=== PATIENT | male | born 1950 | race Caucasian/White ===

== ENCOUNTER 2024-12-17 10:52 | Observation (INO) | payer MEDICARE ==
[2024-12-12 11:16] VITALS: BP 129/70; PULSE 73; RESP 18; TEMP 97.7
[2024-12-12 12:10] LABS: BASOPHILS # (AUTO) 0.05 K/uL (0.00-0.20); BASOPHILS % (AUTO) 0.8 % (0.0-5.0); EOSINOPHILS # (AUTO) 0.22 K/uL (0.00-0.70); EOSINOPHILS % (AUTO) 3.7 % (0.0-8.0); HEMATOCRIT 47.4 % (42-54); IMMATURE GRANULOCYTE ABSOLUTE 0.02 K/uL (0-1); LYMPHOCYTES # (AUTO) 1.7 K/uL (1.0-4.8); LYMPHOCYTES % (AUTO) 28.6 % (21.0-51.0); MEAN CORPUSCULAR HEMOGLOBIN 30.8 pg (27.0-33.0); MEAN CORPUSCULAR HGB CONC 33.1 g/dL (32.0-36.0); MEAN CORPUSCULAR VOLUME 92.9 fL (79-99); MONOCYTES # (AUTO) 0.7 K/uL (0.1-1.0); MONOCYTES % (AUTO) 11.9 % (3.0-13.0); NEUTROPHILS # (AUTO) 3.2 K/uL (1.8-7.7); NEUTROPHILS % (AUTO) 54.7 % (40.0-77.0); PLATELET COUNT (AUTO) 195 K/uL (130-400); RED CELL DISTRIBUTION WIDTH 13.8 % (11.0-15.5); WHITE BLOOD COUNT (AUTO) 5.9 K/uL (4.8-10.8)
[2024-12-12 12:21] LABS: ALBUMIN 3.5 g/dL (3.5-5.0); CREATININE 1.1 mg/dL (0.5-1.3); INR 1.01 (0.85-1.15); POTASSIUM 5.4 mmol/L (3.5-5.1); PROTHROMBIN TIME 11.3 SEC (9.6-11.6)
[2024-12-12 12:22] LABS: PARTIAL THROMBOPLASTIN TIME 25.6 SEC (26.3-35.5)
--- NOTE | 2024-12-12 13:45 | EKG ---
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
--- NOTE | 2024-12-16 09:22 | NUR ---
RE: LABS REPORTED BMP RESULTS TO DR CHRISTY, NO NEW ORDERS RECEIVED.
[2024-12-17] VITALS (27 sets, daily range): BP systolic 103–152; BP diastolic 61–89; PULSE 62–119; RESP 13–19; TEMP 97.1–97.8; O2SAT 94
[~2024-12-17] VITALS: Ht 175.3 cm; Wt 89.8 kg
[~2024-12-17 10:52] MED LIST: ATOR40TA69 PO; INSU3INS3 SQ; METF-446 PO
[2024-12-17] MEDS: ceFAZolin SODIUM 2 GM VIAL ONE (11:40)
[2024-12-17] MEDS: 0.9%NACL 1000ML 1,000 ML IV ONE (11:40)
--- NOTE | 2024-12-17 11:50 | EKG ---
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
[2024-12-17] MEDS ORDERED: LIDOCAINE PF 100MG/5ML (2%) SYRINGE 5ML ONE (11:57)
[2024-12-17] MEDS ORDERED: dexaMETHasone SOD PHOSPHATE 4 MG/ML 1ML VIAL ONE ×2 (11:57→12:09)
[2024-12-17] MEDS ORDERED: ketOROlac 30MG VIAL (30MG/ML) ONE (11:57)
[2024-12-17] MEDS ORDERED: proPOFol 10 MG/ML 20ML VIAL IV ONE (11:58)
[2024-12-17] MEDS ORDERED: MIDAZOLAM HCL 1 MG/ML 2ML VIAL ONE (11:58)
[2024-12-17] MEDS ORDERED: NEOSTIGMINE METHYLSULFATE 1MG/ML IV ONE (11:58)
[2024-12-17] MEDS ORDERED: phenylEPHRINE HCL 10 MG/ML 1ML VIAL IV ONE (11:58)
[2024-12-17] MEDS ORDERED: GLYCOPYRROLATE 0.2 MG/ML 5 ML VIAL ONE (11:58)
[2024-12-17] MEDS ORDERED: rocuRONium bROMide 10MG/1ML 5ML VL ONE (11:59)
[2024-12-17] MEDS ORDERED: ondanSETRON 4MG INJ ONE (11:59)
[2024-12-17] MEDS ORDERED: FENTanyl CITRate PF 50 MCG/1 ML 2ML VIAL ONE (11:59)
[2024-12-17] MEDS ORDERED: ROPivacaine 0.5% 5MG/ML 30ML ONE (12:09)
[2024-12-17] MEDS: ceFAZolin SODIUM 2 GM VIAL IVPB ONE (13:16)
[2024-12-17] MEDS ORDERED: traMADol HCL 50 MG TABLET PO PRN (14:00)
[2024-12-17] MEDS ORDERED: PoTASSium chloRIDE 20MEQ ER 20 MEQ ERTAB PO PRN (14:00)
[2024-12-17] MEDS ORDERED: PoTASSium chl 10% ELIXIR 20MEQ 20 MEQ/15 ML UDCUP PO PRN (14:00)
[2024-12-17] MEDS ORDERED: FE FUMARATE/FA/MV, MIN COMB#15 1 TAB PO PRN (14:00)
[2024-12-17] MEDS ORDERED: CYCLOBENZAPRINE HCL 10 MG TABLET PO PRN (14:00)
[2024-12-17] MEDS: ketOROlac 15MG/ML VIAL (15MG/ML) IV SCH (14:00)
[2024-12-17] MEDS ORDERED: ondanSETRON 4MG INJ IVP PRN (14:00)
[2024-12-17] MEDS ORDERED: PoTASSium chloRIDE 20MEQ/100ML 100 ML IV PRN (14:00)
[2024-12-17] MEDS ORDERED: CALCIUM CARB 500MG PO PRN (14:00)
[2024-12-17] MEDS ORDERED: TRANEXAMIC ACID 1000MG/10ML ONE (14:11)
--- NOTE | 2024-12-17 16:59 | HMCIMG ---
SHOULDER COMP 2+VWS LT REASON: ORIF LEFT TSA, SX TECHNIQUE: 8 surgical spot views were obtained. These document left shoulder total joint replacement procedure. Fluoroscopy time was 20.9 seconds. IMPRESSION: 1. Documentation of left total shoulder joint prosthesis placement.
[2024-12-17] MEDS: metFORmin HCL 500 MG TABLET PO SCH (17:00)
--- NOTE | 2024-12-17 17:10 | OP ---
Operative Note: DATE OF PROCEDURE: 12/17/24 SURGEON: TURNER BASS MD PARTS BACK COUNTER MAN: BRENDA Pride ANESTHESIA: General and interscalene block ANESTHESIOLOGIST/LEAD ASSISTANT MANAGER: REGINALDO Garcia PREOPERATIVE DIAGNOSIS: Left glenohumeral osteoarthritis POSTOPERATIVE DIAGNOSIS: Left glenohumeral osteoarthritis PROCEDURE: Left reverse total shoulder arthroplasty ESTIMATED BLOOD LOSS: 200 cc COMPLICATIONS: None DRAINS: None SPECIMENS: resected bone from the humeral head not sent to pathology IMPLANTS: [employer] FX V135 size 36/12 120mm humeral stem, 32/3 stability cup, eccentric 32 mm glenosphere, +3 mm lateralized base plate with central screw, one standard screw, and two locking screws INDICATIONS: 73-year-old male with left shoulder pain and dysfunction secondary to glenohumeral osteoarthritis. The patient was failing conservative management and was unable to get an MRI due to another implant. After discussion the risk, benefits, and alternatives, the patient voluntarily agreed to undergo the aforementioned procedure. DESCRIPTION OF PROCEDURE: Patient was properly identified in the preoperative holding area. Surgical site marking was verified and surgery consent reviewed. The patient was then taken to the operating room and placed in supine position on the OR table. After induction of general anesthesia, preoperative antibiotics were given, all bony prominences were well-padded as the patient was transitioned into beachchair positioning. The left upper extremity was then prepped and draped in usual sterile fashion. Surgical time out was done verifying correct surgery, side, site, and location to be performed. We then began the procedure by making approximately 12 cm long incision over the deltopectoral interval using a 10 blade. Hemostasis was performed using Bovie electrocautery. We then dissected through the subcutaneous tissues using the Metzenbaums to identify our deltopectoral interval. We then mobilized the cephalic vein laterally as we opened the interval. We then incised the clavipectoral fascia just lateral to the conjoined tendon and placed our retractor deep to this. We identified the long head of the biceps tendon and performed a tenotomy. We then began elevating the subscapularis off of its insertion on the humeral head using Bovie electrocautery. With external rotation we brought the humeral head into view and released the capsule at the inferior aspect of the head. We released a small portion of the pectoralis off of its insertion on the humerus to allow for better exposure. We then placed our retractors protecting soft tissue. At this point we began using the sounding instruments, hand reaming up to a size 12. We pinned the cutting guide off of the handle in 30 degrees of version and performed the humeral osteotomy. We then broached up to a size 12 x 36. The rongeur was used to clean up our cut. We subluxated the humerus posteriorly. We then placed our retractors around the glenoid to provide adequate exposure of the glenoid. The labrum and long head biceps tendon were resected with Bovie electrocautery. We then used to the guide to insert our central guidepin en suring we were far enough inferior on the glenoid face. Over the central guidepin we reamed with the all-in-one reamer for the central peg and the faceplate. We then used the hand plug shaper to clean up the remaining soft tissue and bone. We then thoroughly irrigated out the glenoid bone and impacted into position the glenoid baseplate. We elected to place a central screw through the base plate. We then placed 1 compression screw and 2 locking screw in the baseplate. We noted using a freer elevator that the baseplate was appropriately seated. We elected to use a eccentric glenosphere as the base plate was off centered anterior and superiorly. Glenosphere was then seated in standard fashion with the setscrew tightened. We then removed our retractors and dislocated the humerus once more. We remove the protective cap from the cut end of the humerus. We then elected to trial w ith a size +3 polyethylene. With this in place, we reduced the humerus and noted good stable range of motion. We then dislocated the humerus and remove the trial components. We thoroughly irrigated out the bone. We seated the final stem implant and trialed once more. The size +3 polyethylene was still appropriate so we opened the final polyethylene and implanted this in standard fashion. We then reduced the humerus once more and ensured appropriate range of motion and stability. We checked the position of the components under fluoroscopy and found him to be appropriate. We thoroughly irrigated out the wound. We then began loosely repairing the deltopectoral interval using #2 Ethibond. Subcutaneous tissue was approximated using 2-0 Vicryl. The skin was closed using a running subcuticular 3-0 Monocryl with Dermabond applied. An Optifoam dressing was applied once the Dermabond dried. The patient was then placed into a sling, awakened from anesthesia, and taken recovery room in stable condition. TURNER BASS MD Dec 17, 2024 17:10
--- NOTE | 2024-12-17 18:37 | HMCIMG ---
LEFT SHOULDER RADIOGRAPHS - 1 VIEWS INDICATION: Status post shoulder surgery COMPARISON: None FINDINGS/IMPRESSION: Battery pack projects over the left chest and associated courses towards the left neck. Reverse left shoulder the posterior hardware appears normal, without retained foreign body.
[2024-12-17] MEDS: doCUSate SODIUM 100 MG CAP PO SCH (20:13)
[2024-12-17] MEDS: atorVAStatin 40 MG TABLET PO SCH (20:14)
[2024-12-17] MEDS: HYDROcodone/APAP 5/325 1 TAB TABLET PO PRN (20:15)
[2024-12-17] MEDS: ceFAZolin SODIUM 2 GM VIAL IVP SCH (20:16)
[2024-12-17] MEDS: 0.9%NACL 1000ML 1,000 ML IV SCH (20:19)
[2024-12-17] MEDS: INSULIN humuLIN R 100 UNIT/ML 3ML SQ SCH (21:00)
[2024-12-18] VITALS: BP 110/65; PULSE 114; RESP 19; TEMP 97.8
[2024-12-18 03:40] LABS: HEMATOCRIT 41.9 % (42-54); MEAN CORPUSCULAR HEMOGLOBIN 30.6 pg (27.0-33.0); MEAN CORPUSCULAR HGB CONC 32.7 g/dL (32.0-36.0); MEAN CORPUSCULAR VOLUME 93.7 fL (79-99); RED BLOOD CELL COUNT(AUTO) 4.47 MIL/uL (4.50-6.20); RED CELL DISTRIBUTION WIDTH 13.6 % (11.0-15.5); WHITE BLOOD COUNT (AUTO) 9.4 K/uL (4.8-10.8)
[2024-12-18 03:51] LABS: CREATININE 1.1 mg/dL (0.5-1.3); POTASSIUM 4.7 mmol/L (3.5-5.1)
[2024-12-18 04:00] VITALS: BP 112/64; PULSE 101; RESP 18; TEMP 98.3
[2024-12-18] MEDS: ceFAZolin SODIUM 2 GM VIAL ONE (04:42)
--- NOTE | 2024-12-18 08:11 | PN ---
Ortho postop day one. This morning patient is in bed enjoying his breakfast. Reporting not sleeping overnight but stating pain is managed acceptably. Vital signs have been stable. Afebrile. Voiding on his own. Laboratory results reviewed. Hemoglobin and hematocrit dropped a few however he is asymptomatic. We will address per protocol as necessary. Operative findings discussed with the patient. Reinforce incentive spirometry. The dressing to the deltopectoral region is intact. He is able to open and close his hand on command has full range of the wrist. Ice present to op-site. Pending therapy this morning. I would like for him to spend majority of his day out of bed in a chair he voiced understanding. Anticipated discharge goal is home health/OT Assessment: Status post left reverse shoulder arthroplasty. Asymptomatic acute postoperative blood loss anemia. Plan: Continue with Dr. Leroy reverse shoulder arthroplasty and discharge planning. Asymptomatic acute postoperative blood loss anemia addressed with the protocol as necessary Vitals/Labs Vital Signs Date Time Temp Pulse Resp B/P (MAP) Pulse Ox O2 Delivery O2 Flow Rate FiO2 12/18/24 04:00 98.2 101 18 112/64 93 Room Air 12/17/24 23:00 3.0 12/17/24 20:00 21 Laboratory Tests 12/18/24 03:09 Medications Current Medications Cefazolin Sodium 2 gm STK-MED ONCE .ROUTE; Start 12/17/24 at 10:59; Stop 12/17/24 at 10:59; Status DC Sodium Chloride 1,000 ml @ As Directed STK-MED ONCE IV Last administered on 12/17/24at 11:40; Start 12/17/24 at 10:59; Stop 12/17/24 at 10:59; Status DC Lidocaine HCl 100 mg STK-MED ONCE .ROUTE; Start 12/17/24 at 11:57; Stop 12/17/24 at 11:58; Status DC Dexamethasone Sodium Phosphate 4 mg STK-MED ONCE .ROUTE; Start 12/17/24 at 11:57; Stop 12/17/24 at 11:58; Status DC Ketorolac Tromethamine 30 mg STK-MED ONCE .ROUTE; Start 12/17/24 at 11:57; Stop 12/17/24 at 11:58; Status DC Glycopyrrolate 1 mg STK-MED ONCE .ROUTE; Start 12/17/24 at 11:58; Stop 12/17/24 at 11:58; Status DC Midazolam HCl 2 mg STK-MED ONCE .ROUTE; Start 12/17/24 at 11:58; Stop 12/17/24 at 11:58; Status DC Propofol 200 mg STK-MED ONCE IV; Start 12/17/24 at 11:58; Stop 12/17/24 at 11:58; Status DC Neostigmine Methylsulfate 10 mg STK-MED ONCE IV; Start 12/17/24 at 11:58; Stop 12/17/24 at 11:59; Status DC Phenylephrine HCl 10 mg STK-MED ONCE IV; Start 12/17/24 at 11:58; Stop 12/17/24 at 11:59; Status DC Ondansetron HCl 4 mg STK-MED ONCE .ROUTE; Start 12/17/24 at 11:59; Stop 12/17/24 at 11:59; Status DC Rocuronium [place] 50 mg STK-MED ONCE .ROUTE; Start 12/17/24 at 11:59; Stop 12/17/24 at 11:59; Status DC Fentanyl Citrate 100 mcg STK-MED ONCE .ROUTE; Start 12/17/24 at 11:59; Stop 12/17/24 at 12:00; Status DC Dexamethasone Sodium Phosphate 4 mg STK-MED ONCE .ROUTE; Start 12/17/24 at 12:09; Stop 12/17/24 at 12:09; Status DC Ropivacaine 150 mg STK-MED ONCE .ROUTE; Start 12/17/24 at 12:09; Stop 12/17/24 at 12:09; Status DC Sodium Chloride 1,000 ml @ 100 mls/hr Q10H IV Last administered on 12/17/24at 20:19; Start 12/17/24 at 14:00; Stop 12/18/24 at 13:59 Polyethylene Glycol 17 gm DAILY PO; Start 12/18/24 at 09:00; Stop 01/17/25 at 08:59 Bisacodyl 10 mg DAILY PRN RC; Start 12/20/24 at 14:00; Stop 01/19/25 at 13:59 Ketorolac Tromethamine 15 mg Q6H PRN IV; Start 12/18/24 at 14:00; Stop 12/23/24 at 13:59 Multivitamins/Iron 1 tab DAILY PRN PO; Start 12/17/24 at 14:00; Stop 01/16/25 at 13:59 Ondansetron HCl 4 mg Q6H PRN IVP; Start 12/17/24 at 14:00; Stop 01/16/25 at 13:59 Calcium Carbonate 500 mg Q12H PRN PO; Start 12/17/24 at 14:00; Stop 01/16/25 at 13:59 Insulin Human Regular INSULIN SLIDING SCAL... ACHS SQ; Start 12/17/24 at 16:30; Stop 01/16/25 at 16:29 Cefazolin Sodium 2 gm Q8H IVP Last administered on 12/18/24at 04:42; Start 12/17/24 at 19:00; Stop 12/18/24 at 03:01; Status DC Cyclobenzaprine HCl 5 mg Q8H PRN PO; Start 12/17/24 at 14:00; Stop 01/16/25 at 13:59 Docusate Sodium 100 mg BID PO Last administered on 12/17/24at 20:13; Start 12/17/24 at 21:00; Stop 01/16/25 at 20:59 Ketorolac Tromethamine 15 mg Q8H IV Last administered on 12/18/24at 07:03; Start 12/17/24 at 14:00; Stop 12/18/24 at 06:01; Status DC Potassium Chloride 100 ml @ 100 mls/hr AD PRN IV; Start 12/17/24 at 14:00; Stop 01/16/25 at 13:59 Potassium Chloride 20 meq AD PRN PO; Start 12/17/24 at 14:00; Stop 01/16/25 at 13:59 Potassium Chloride 20 meq AD PRN PO; Start 12/17/24 at 14:00; Stop 01/16/25 at 13:59 Tramadol HCl 50 mg Q6H PRN PO; Start 12/17/24 at 14:00; Stop 12/22/24 at 13:59 Acetaminophen/ Hydrocodone Bitart Q4H PRN PO Last administered on 12/17/24at 20:15; Start 12/17/24 at 14:00; Stop 12/22/24 at 13:59 Atorvastatin Calcium 40 mg HS PO Last administered on 12/17/24at 20:14; Start 12/17/24 at 21:00; Stop 01/16/25 at 20:59 Insulin Glargine 50 units DAILYBKFST SQ; Start 12/18/24 at 08:00; Stop 01/17/25 at 07:59 Metformin HCl 1,000 mg BIDMEALS PO; Start 12/17/24 at 17:00; Stop 01/16/25 at 16:59 Tranexamic Acid 1,000 mg STK-MED ONCE .ROUTE; Start 12/17/24 at 14:11; Stop 12/17/24 at 14:12; Status DC Cefazolin Sodium 2 gm STK-MED ONCE IVPB Last administered on 12/17/24at 13:16; Start 12/17/24 at 13:16; Stop 12/17/24 at 15:01; Status DC Tranexamic Acid 1,000 mg STK-MED ONCE IV Last administered on 12/17/24at 13:25; Start 12/17/24 at 13:25; Stop 12/17/24 at 15:01; Status DC Cefazolin Sodium 2 gm STK-MED ONCE .ROUTE; Start 12/18/24 at 04:38; Stop 12/18/24 at 04:39; Status DC HEATHER MORIN NP Dec 18, 2024 08:11
[2024-12-18 08:20] VITALS: O2SAT 91
[2024-12-18 08:22] VITALS: BP 101/59; PULSE 95; RESP 22; TEMP 98.6
[2024-12-18] MEDS: INSULIN GLARgine 100 UNITS/ML 10 ML VIAL SQ SCH (08:44)
[2024-12-18] MEDS: polyETHYLene GLYCol 3350 17 GM POWD.PACK PO SCH (08:45)
[2024-12-18] MEDS ORDERED: CYCL-309 PO (12:05)
[2024-12-18] MEDS ORDERED: DOCU-116 PO (12:05)
[2024-12-18] MEDS ORDERED: HYDR-4060 PO (12:05)
--- NOTE | 2024-12-18 12:10 | NUR ---
DC PLAN VISITED WITH PATIENT. PATIENT LIVES WITH SPOUSE. INDEPENDENT ABLE TO PERFORM ADL'S. SAID HAS WALKER AND WHEEL CHAIR AVAILABLE DOES NOT USE. NO SERVICES. ORDER FOR HOME HEALTH. DONNA SIGNED FOR ANY IN NETWORK. PACKET SENT TO [facility]. CHERIE TO FOLLOW UP. Addendum: 12/18/24 at 1212 by OMAR LUX RN CM Amended: Links added.
[2024-12-18 12:59] VITALS: BP 105/57; PULSE 90; RESP 16; TEMP 98.3
[2024-12-18] MEDS ORDERED: ketOROlac 15MG/ML VIAL (15MG/ML) IV PRN (14:00)
--- NOTE | 2024-12-18 14:06 | NUR ---
NE PLAN [facility] [phone] LET DR. BASS KNOW. Addendum: 12/18/24 at 1406 by OMAR LUX RN CM Amended: Links added.
--- NOTE | 2024-12-18 16:00 | NUR ---
REPORT GIVEN TO [facility]. SPOKE TO ANDRIA BROWN. ALL QUESTIONS ANSWERED.
[2024-12-20] MEDS ORDERED: BisaCODYL 10 MG SUPP.RECT RC PRN (14:00)
== END 2024-12-18 17:20 | disposition home or self-care (01) ==
LOC: DAH 10:52 → DAHIP 10:53 → 4DH 19:48
PROVIDERS: ADMIT Student in an Organized Health Care Education/Training Program; ATTEND Student in an Organized Health Care Education/Training Program
DX: M19.012 Primary osteoarthritis, left shoulder (principal); G89.18 Other acute postprocedural pain; D62 Acute posthemorrhagic anemia; E11.9 Type 2 diabetes mellitus without complications; E78.5 Hyperlipidemia, unspecified; Z98.890 Other specified postprocedural states; Z79.899 Other long term (current) drug therapy
CPT/HCPCS: 82040; 80048 ×2; 85025; 85610; 85730; 84134; 86140; 36415 ×2; 93005 ×2; 87641; 73020; 64415; 23472; 96374; 96375; 82948 ×5; 73030; 96376; 85027; 97161; 97116 ×2; 97530; J1100 ×2; G0378 ×22; A4223 ×2; A4663; J7030 ×2; J3010; J3490 ×4; J2003; J2250; J2704; J2405; J1885 ×3; J2710; J2795; J2371; J0690 ×4; A4930; A4649; C1776; A6254; A5120; A4215; A4213; A4222; A4221; A4216